=== PATIENT | male | born 2000 | race African-American/Black ===

== ENCOUNTER 2025-07-01 12:29 | Emergency (ER) | payer OTHER, SELFPAY ==
--- NOTE | ~2025-07-01 | XR_ITS ---
Examination: XR finger 3rd RT min 2V Clinical History: pain 2 days, no injury, no surgeries, Comparison: None Technique: 4 views right third finger Findings/impression: 1. Faint calcified focus periarticular palmar surface PIP joint. Chronic fracture fragment, joint body, dystrophic calcification all possible. 2. No other acute abnormality identified right third finger. Reviewed, dictated and finalized at location R.
[2025-07-01 12:42] VITALS: BP 142/89; PULSE 69; RESP 16; TEMP 36.6; O2SAT 100
--- NOTE | 2025-07-01 13:30 | ED_ITS ---
HPI - Extremity Problem General Chief complaint: Extremity Injury, Upper Stated complaint: INJURED R MIDDLE FINGER Time Seen by Provider: 07/01/25 13:20 Source: patient and RN notes reviewed Mode of arrival: ambulatory Limitations: no limitations History of Present Illness HPI Narrative: 24-year-old male presents Express Care complaining of right middle finger joint pain and swelling since yesterday. Patient denies any falls or injuries. Patient reported redness and swelling near the PIP joint of his right middle finger. Patient reports it is hard to bend his right middle finger to the swelling. Patient has any fevers, body aches, chills, nausea, vomiting, numbness, tingling, or any other symptoms. Patient denies any history of gout. Related Data Allergies Allergy/AdvReac Type Severity Reaction Status Date / Time Penicillins Allergy Mild Swelling Verified 07/01/25 13:06 Review of Systems 2 Review of Systems: CONSTITUTIONAL: Denies fever, chills, or sweats. EYES: Denies visual changes, redness, or discharge. ENT: Denies rhinorrhea, congestion, sore throat, or otalgia. CARDIOVASCULAR: Denies chest pain, palpitations, or edema. RESPIRATORY: Denies cough or dyspnea. GASTROINTESTINAL: Denies abdominal pain, nausea, vomiting, or diarrhea. GENITOURINARY: Denies dysuria or hematuria. SKIN: Denies rash or itching. MUSCULOSKELETAL: Denies back pain, joint pain, or myalgia. Positive Right middle finger redness and swelling. NEUROLOGIC: Denies headache, numbness, or weakness. PSYCHIATRIC: Denies anxiety or depression. All other systems reviewed are negative, except as documented in HPI. PMFSH Comments At the time of my signature, I reviewed and agree with the nursing past medical, surgical, social, and family history. There is no relevant family history pertinent to the patient complaint. Exam Narrative: GENERAL: This is a well-nourished, well-developed adult, in no apparent distress. They are non ill-appearing, nontoxic appearing. HEAD: normocephalic, atraumatic. EYES: Sclera clear/white. Conjunctiva normal. Vision is grossly intact. Extraocular movements intact EARS: External ears normal,Hearing grossly intact. NOSE: External nose normal THROAT: Mucous membranes moist, NECK: Neck supple, CARDIOVASCULAR: Regular rate and rhythm RESPIRATORY: Respiratory rate normal, respiratory effort nonlabored, no respiratory distress SKIN: warm, Dry, intact with no suspicious lesions or rash, good texture and turgor. NEURO: awake, alert, and oriented to person, place and time. There were no obvious focal neurologic abnormalities. EXTREMITIES: Right middle finger: No obvious deformity, bruising, or injury. No wounds. PIP joint erythematous and tender to palpate. Patient able to flex and extend against resistance at the PIP joint however there is pain. Patient is able to flex and extend against resistance at the DIP and MCP joint. Capillary refill less than 2 seconds. Sensation intact. Neurovascular status intact. Course Course Emergency Course: Portions of this record may have been created with voice recognition software Level of Care: Express Care Visit Vital Signs Vital signs: Vital Signs Temperature 98 F 07/01/25 12:42 Pulse Rate 69 07/01/25 12:42 Respiratory Rate 16 07/01/25 12:42 Blood Pressure 142/89 H 07/01/25 12:42 Pulse Oximetry 100 07/01/25 12:42 Temperature 98 F 07/01/25 12:42 Pulse Rate 69 07/01/25 12:42 Respiratory Rate 16 07/01/25 12:42 Blood Pressure 142/89 H 07/01/25 12:42 Pulse Oximetry 100 07/01/25 12:42 Reviewed MDM - Extremity (Nontraumatic) MDM Narrative Medical decision making narrative: X-ray right middle finger shows calcification in the PIP joint. Could be joint body or chronic old fracture. Patient denies any injuries to this finger. Patient denies any history gout or hypertension. Patient is an . Patient is not have a primary care doctor. Score of 6 which is equivocal. Could also be arthritis. Will go ahead and treat with a course of prednisone will refer patient a PCP to be further evaluated for any gout or any other inflammatory conditions. Patient denies any joint stiffness when he wakes up. Differential Diagnosis Differential diagnosis: Likely gout, cellulitis and other (Fracture, ost eoarthritis, rheumatoid arthritis) Imaging Data Radiologist's impression: Findings/impression: 1. Faint calcified focus periarticular palmar surface PIP joint. Chronic fracture fragment, joint body, dystrophic calcification all possible. 2. No other acute abnormality identified right third finger. Critical Care Time Critical Care Time Critical Care Time: No Discharge Plan Discharge Clinical Impression: Arthritis of finger of right hand Patient Disposition: Home Condition: Stable Instructions: Low Purine Diet (ED), Osteoarthritis (ED) Additional Instructions: The x-ray of your right middle finger is negative for any fractures or acute findings. It does show some calcification to the proximal end of your finger to the 1st joint should indicate arthritis or an old fracture. Appears to likely be arthritis, gout cannot be excluded. Take the prednisone as directed. Apply ice to the area 20 minutes at a time a few times a day to help with swelling Alternate with Tylenol and ibuprofen for pain. You may take ibuprofen 600 mg to 800 mg every 6-8 hours. Do not exceed more than 800 mg of ibuprofen per dose. Do not exceed more than 3200 mg ibuprofen in a day. You may take up to 1000 mg Tylenol every 6-8 hours. Do not exceed 1000 mg per dose, do exceed more than 4000 mg of Tylenol in a day. Follow-up with PCP in 3-5 days. Please go to the ER if he develops fevers, worsening redness, swelling, pain unable to move your finger, or any serious concerns. Patient Language: Emir[place] Prescriptions: New prednisone 20 mg tablet 40 mg PO DAILY 5 Days Qty: 10 0RF Follow-up/Referrals: PHYSICIAN,VESSEL MANAGER [Primary Care Provider, Internal Medicine] Yasir Davis MD [Physician, Family Practice] - 3 Days Stand Alone Forms: Work/School Release IP Time of Disposition: 13:25
== END 2025-07-01 13:30 | disposition home or self-care (01) ==
DX: M19.041 Primary osteoarthritis, right hand (principal)
CPT/HCPCS: 73140; 99213; G0463